=== PATIENT | male | born 1990 | race African-American/Black ===

== ENCOUNTER 2019-08-18 12:03 | Emergency (ER) | payer MEDICAID, OTHER ==
[~2019-08-18] VITALS: Ht 185.4 cm; Wt 65.8 kg
[2019-08-18 12:12] VITALS: BP 122/69
[2019-08-18] MEDS ORDERED: ACETAMINOPHEN 500 MG TAB PO ONE (13:45)
== END 2019-08-18 14:33 | disposition home or self-care (01) ==
LOC: ER 12:03
DX: S76.012A Strain of muscle, fascia and tendon of left hip, initial encounter (principal); F17.210 Nicotine dependence, cigarettes, uncomplicated; X50.1XXA Overexertion from prolonged static or awkward postures, initial encounter; Y93.02 Activity, running; Y92.89 Other specified places as the place of occurrence of the external cause; Y99.8 Other external cause status
CPT/HCPCS: 73502